=== PATIENT | male | born 1955 | race Caucasian/White ===

== ENCOUNTER → 2018-08-05 | Emergency (ER) | payer MEDICARE ==
[~2018-08-05] VITALS: Ht 175.3 cm; Wt 67.1 kg
[~2018-08-05] MED LIST: LORAZEPAM INJ 2 MG/ML VIAL ONE
--- NOTE | 2018-08-05 22:55 | NUR ---
PT [id number] FROM [facility] COMPLAINING OF LOW SPO2 AND WARM TO TOUCH. PT STATES "IM HAVING SEIZURES". PT IS AWAKE AND DIAPHORETIC. NOTED INVOLUTARY MUSCLE SPASM IN RIGHT UPPER AND LOWER EXTREMITIES. PT IS 91% ON ROOM AIR, PLACED ON 4L SIMPLE MASK, TOLERATED WELL, O2 98%. PT PLACED IN GOWN AND ON CONTINUOUS HYDRAMATIC MECHANIC
--- NOTE | 2018-08-05 22:57 | NUR ---
MD AT BEDSIDE FOR EVALUATION
--- NOTE | 2018-08-05 23:00 | NUR ---
IV PRESENTED ON ARRIVAL. LEFT AC 18G. LABS DRAWN FROM SITE. IV INTACT AND PATENT, PLACED ON SALINE LOCK. LAB CALLED FOR PRESIDENT AND CMO
--- NOTE | 2018-08-05 23:05 | NUR ---
URINE COLLECTED. CALLED LAB FOR TRAIN INSPECTOR
[2018-08-05] MEDS: LORAZEPAM INJ 2 MG/ML VIAL IV ONE (23:10)
--- NOTE | 2018-08-05 23:17 | NUR ---
RADIOLOGY AT BEDSIDE FOR CXR
[2018-08-05 23:32] LABS: BASOPHILS % (AUTO) 0.3 % (0.0-2.0); EOSINOPHILS % (AUTO) 1.2 % (0.0-6.0); HEMATOCRIT 35 % (39-51); HEMOGLOBIN 11.8 g/dL (13.5-17.5); LYMPHOCYTES # (AUTO) 0.5 /CMM (0.8-4.8); LYMPHOCYTES % (AUTO) 10.5 % (20.0-44.0); MEAN CORPUSCULAR HGB CONC 33 g/dl (31.0-36.0); MEAN CORPUSCULAR VOLUME 107 fL (80-96); MONOCYTES # (AUTO) 0.2 /CMM (0.1-1.30); MONOCYTES % (AUTO) 4.6 % (2.0-12.0); NEUTROPHILS # (AUTO) 3.8 /CMM (1.8-8.9); NEUTROPHILS % (AUTO) 83.4 % (43.0-81.0); PLATELET COUNT (AUTO) 252 /CMM (150-450); RDW COEFFICIENT OF VARIATION 13.7 (11.5-15.0); RED BLOOD CELL COUNT(AUTO) 3.32 MIL/uL (4.5-6.0); WHITE BLOOD COUNT (AUTO) 4.5 K/uL (4.3-11.0)
[2018-08-05 23:35] LABS: APPEARANCE,URINE CLEAR (CLEAR); BILIRUBIN,URINE NEGATIVE (NEGATIVE); BLOOD, URINE TRACE Ery/uL (NEGATIVE); COLOR,URINE YELLOW (YELLOW); KETONES,URINE NEGATIVE (NEGATIVE); LEUKOCYTE ESTERASE ,URINE NEGATIVE (NEGATIVE); NITRITE, URINE NEGATIVE (NEGATIVE); PROTEIN,URINE 1+ mg/dl (NEGATIVE); UGLUCOSE NEGATIVE (NEGATIVE); UROBILINOGEN,URINE 0.2 EU/dL (0.2)
[2018-08-05 23:42] LABS: CARBON DIOXIDE 27 mmol/L (21-32); CHLORIDE 101 mmol/L (98-107); CREATININE 1.4 mg/dL (0.6-1.3); GLUCOSE 125 mg/dL (74-106); POTASSIUM 4.1 mmol/L (3.5-5.1); SODIUM SERUM 139 mmol/L (136-145); UREA NITROGEN, BLOOD 22 mg/dL (7-18)
[2018-08-05 23:47] LABS: BACTERIA,URINE Few /HPF (None Seen); RBC,URINE 0-2 /HPF (0-2); SQUAMOUS EPITHELIAL CELL,UR Rare /HPF (None Seen); URINE AMORPHOUS URATE Many /HPF (None Seen); WBC,URINE 0-2 /HPF (0-3)
[2018-08-06] MEDS: IV NS 0.9% 1,000 ML BAG IV ONE (00:43)
--- NOTE | 2018-08-06 01:12 | NUR ---
PT RESTING COMFORTABLY IN BED. VITAL SIGNS STABLE. PT ON CONTINUOUS CARDIAC MONITORING. WILL CONTINUE TO MONITOR
[2018-08-06 01:50] LABS: BILIRUBIN,DIRECT 0.1 mg/dL (0.0-0.2); BILIRUBIN,TOTAL 0.4 mg/dL (0.2-1.0)
--- NOTE | 2018-08-06 02:12 | NUR ---
GAVE REPORT TO [facility] [place] [facility]
[2018-08-06 02:18] VITALS: BP 136/80
--- NOTE | 2018-08-07 06:29 | NUR ---
RECEIVED CALL FROM LAB REGARDING CRITICAL RESULTS FOR BLOOD CULTURES. BLOOD CULTURES POSITIVE FOR GRAM POSITIVE COCCI. MIYA MARIE MADE AWARE.
--- NOTE | 2018-08-07 06:35 | NUR ---
RECEIVED CALL FROM LAB REGARDING CRITICAL RESULTS FOR BLOOD CULTURES. BLOOD CULTURES POSITIVE FOR GRAM POSITIVE COCCI. ER MADE AWARE. CALLED PT'S FACILITY [facility] AT [phone] AND SPOKE WITH KENYETTA CAMACHO TAKING CARE OF PT. KENYETTA CAMACHO WAS MADE AWARE OF RESULTS.
== END | disposition home or self-care (01) ==
LOC: ER 22:52
DX: G40.909 Epilepsy, unspecified, not intractable, without status epilepticus (principal); F12.10 Cannabis abuse, uncomplicated; I10 Essential (primary) hypertension; E78.5 Hyperlipidemia, unspecified; K21.9 Gastro-esophageal reflux disease without esophagitis; E03.9 Hypothyroidism, unspecified; Z85.118 Personal history of other malignant neoplasm of bronchus and lung
CPT/HCPCS: 36415 ×2; 71045; 80048; 80305; 81001; 82247; 82248; 83605 ×2; 85025; 87040 ×2; 87077; 87186; 93005; 96374; 99285; A4606; J2060; J7030; 81000-TC; Z7610